=== PATIENT | female | born 2000 | race Caucasian/White ===

== ENCOUNTER 2019-12-04 23:00 | Outpatient (CLI) | payer SELFPAY ==
--- NOTE | 2019-12-04 | US_ITS ---
WS: [id number] OBSTETRICAL ULTRASOUND COMPLETE HISTORY: SUPERVISION OF NORMAL FIRST IN SECOND TRIMESTER COMPARISON: None available. Single intrauterine gestation in Cephalic presentation. Cervix is not visualized. Completely obscured by shadowing. Normal amount of amniotic fluid surrounds the fetus. Placenta: Posterior Placenta grade 0 Heart: 151 BPM. Four chambers are identified. Anatomy: Intracranial structures and spine are normal. kidneys, stomach and urinary bladd er are unremarkable. Abdominal wall, three-vessel cord and cord insertion site are normal. 4 extremities are present. profile: Unremarkable. Gender: Female. measurements: BPD = 4.5 cm = 19w4d HC = 17.1 cm = 19w5d AC = 14.7 cm = 20w0d FL = 3.3 cm = 20w2d EFW: 331 g., Measurements are internally concordant. AGA by ultrasound: 19 weeks 6 days THERESA by ultrasound: 04/23/2020 US/US OB >= 14 weeks fetus [id number] IMPRESSION: 1. Single intrauterine gestation of 19 weeks 6 days with an EDC of 04/23/2020. 2. Unremarkable screening survey of anatomy.
== END 2019-12-04 23:01 | disposition home or self-care (01) ==
LOC: RADOUTREAD 12-07 07:54
PROVIDERS: Visit Provider Family Medicine
DX: Z01.89 Encounter for other specified special examinations (principal)

== ENCOUNTER 2020-02-29 23:05 | Outpatient (CLI) | payer MEDICAID, SELFPAY ==
[2020-02-29 23:05] VITALS: BMI 28.3
[2020-02-29 23:24] VITALS: BP 114/53; PULSE 118; RESP 18; TEMP 36.7
[2020-03-01 00:40] VITALS: BP 127/59; PULSE 101; RESP 17; TEMP 36.6; O2SAT 98
[2020-03-01 00:50] VITALS: BP 127/59; PULSE 101; RESP 17; TEMP 36.6; O2SAT 98
[2020-03-01 09:52] LABS: Bilirubin Urine 1+ (NEGATIVE); Blood Urine Neg (Negative); Glucose Urine UA Norm (Normal); Ketones Urine Negative (Negative); Nitrate Urine Negative (Negative); Protein Urine Neg (Negative); Urine Appearance Cloudy (CLEAR); Urine Color Yellow (Yellow); pH Urine 8 (5-7)
[2020-03-01 09:53] LABS: Add Urine Culture? Yes; Amorphous Sediment Urine 2+; Bacteria Urine 2+; Leukocyte Esterase Urine Negative (Negative); RBC Urine 0-4 /hpf (0-2); Squamous Epithelial Cell Urine 0-4 (0-5); Urobilinogen Urine Norm (Negative); WBC Urine 0-4 /hpf (0-5)
== END 2020-03-01 01:25 | disposition home or self-care (01) ==
LOC: OPOB 03-01 01:19 → OBGYN 03-01 08:11
PROVIDERS: Visit Provider Family Medicine
DX: O26.899 Other specified pregnancy related conditions, unspecified trimester (principal); Z3A.00 Weeks of gestation of pregnancy not specified; R10.9 Unspecified abdominal pain
CPT/HCPCS: 59025; 81001; 87086; 99211

== ENCOUNTER 2020-03-14 14:53 | Outpatient (CLI) | payer MEDICAID, SELFPAY ==
[2020-03-14] VITALS (10 sets, daily range): BP systolic 0–144; BP diastolic 0–72; PULSE 85–104; RESP 17; TEMP 36.8; BMI 29.3
[2020-03-14 15:47] LABS: Urine Appearance Clear (CLEAR); Urine Color Yellow (Yellow)
[2020-03-14 15:48] LABS: Bilirubin Urine Neg (NEGATIVE); Blood Urine Neg (Negative); Glucose Urine UA Norm (Normal); Ketones Urine Negative (Negative); Leukocyte Esterase Urine 1+ (Negative); Nitrate Urine Negative (Negative); Protein Urine Neg (Negative); RBC Urine 0-4 /hpf (0-2); Urobilinogen Urine Neg (Negative); pH Urine 6 (5-7)
[2020-03-14 15:49] LABS: Add Urine Culture? No; Bacteria Urine TRACE; Mucus Urine TRACE
[2020-03-14] MEDS: acetaminophen 500 mg Tablet 1000 MG PO (16:04)
== END 2020-03-14 16:55 | disposition home or self-care (01) ==
LOC: OPOB 15:02 → OBGYN 15:45
PROVIDERS: Visit Provider Family Medicine
DX: O26.899 Other specified pregnancy related conditions, unspecified trimester (principal); Z3A.00 Weeks of gestation of pregnancy not specified; R10.9 Unspecified abdominal pain
CPT/HCPCS: 59025; 81001; 99211

== ENCOUNTER 2020-03-26 17:55 | Outpatient (CLI) | payer MEDICAID, SELFPAY ==
[2020-03-26 18:12] VITALS: BP 140/79; PULSE 92; TEMP 37
[2020-03-26 18:14] VITALS: BMI 29.0
[2020-03-26 18:19] VITALS: PULSE 88; O2SAT 98
[2020-03-26 18:34] VITALS: BP 123/66; PULSE 90
[2020-03-26 18:35] LABS: Actim Prom Negative
[2020-03-26 18:49] VITALS: BP 0/0
[2020-03-26 18:50] VITALS: BP 137/72; PULSE 91
[2020-03-26 19:04] VITALS: BP 148/78; PULSE 94
== END 2020-03-26 19:10 | disposition home or self-care (01) ==
LOC: OPOB 18:08 → OBGYN 18:49
PROVIDERS: Visit Provider Family Medicine
DX: O26.899 Other specified pregnancy related conditions, unspecified trimester (principal); Z3A.00 Weeks of gestation of pregnancy not specified; N89.8 Other specified noninflammatory disorders of vagina
CPT/HCPCS: 59025; 84112; 99211

== ENCOUNTER 2020-04-15 19:28 | Outpatient (CLI) | payer MEDICAID, SELFPAY ==
[2020-04-15 19:41] VITALS: BP 125/75; PULSE 124; RESP 15; TEMP 37
[2020-04-15 19:56] VITALS: BP 134/67; PULSE 92; RESP 16
[2020-04-15 20:15] VITALS: BP 134/62; PULSE 97; RESP 15; TEMP 37
[2020-04-15 20:19] VITALS: BMI 29.7
[2020-04-15 20:26] VITALS: BP 128/68; PULSE 114
[2020-04-15 20:28] LABS: Add Urine Microscopic? YES; Bilirubin Urine 1+ (NEGATIVE); Blood Urine 3+ (Negative); Glucose Urine UA Norm (Normal); Ketones Urine Negative (Negative); Leukocyte Esterase Urine 1+ (Negative); Nitrate Urine Negative (Negative); Protein Urine Neg (Negative); Specific Gravity, Urine 1.025 (1.005-1.030); Urine Appearance Hazy (CLEAR); Urine Color Dark Yellow (Yellow); Urobilinogen Urine 1 mg/dL (Negative); pH Urine 6 (5-7)
[2020-04-15 20:34] LABS: RBC Urine 0-4 /hpf (0-2)
[2020-04-15 20:35] LABS: Add Urine Culture? No; Bacteria Urine TRACE; Mucus Urine 3+
[2020-04-15 20:40] VITALS: RESP 15; TEMP 37
[2020-04-15 20:46] LABS: Basophils % 0.2 %; Eosinophils % 0.2 %; Hematocrit 32.9 % (37.0-47.0); Lymphocytes % 15.2 %; Mean Corpuscular HGB Conc 30.4 g/dL (30.0-36.0); Mean Corpuscular Volume 85.5 fL (81-99); Mean Platelet Volume 11.5 fL (7.4-10.4); Monocytes # 0.8 10^3/uL (0.2-0.9); Monocytes % 6.1 %; Neutrophils # 10.39 10^3/uL (1.8-8.0); Neutrophils % 77.8 %; Nucleated Red Blood Cells % 0 %; Platelet Count 189 10^3/cmm (130-400); Red Blood Count 3.85 10^6/uL (4.1-5.3); Red Cell Distribution Width 14.5 % (12.1-15.1); White Blood Count 13.4 10^3/uL (4.5-13.0)
--- NOTE | 2020-04-15 20:48 | PC.NURSE ---
patient ambulated off unit in stable condition
[2020-04-15 21:01] LABS: Alanine Aminotransferase 7 U/L (0-33); Albumin Level 3.7 g/dL (3.5-5.2); Alkaline Phosphatase 109 IU/L (35-105); Anion Gap 15.8 (5-19); Aspartate Amino Transferase 13 U/L (0-32); Blood Urea Nitrogen 10 mg/dL (6-20); Calcium 9.3 mg/dL (8.5-10.5); Carbon Dioxide 21 mmol/L (22-29); Chloride 101 mmol/L (98-107); Glomerular Filtration Rate 91.4 mL/min (90-130); Glucose 107 mg/dL (65-115); Osmolality Calculated 274 mOsm/kg (285-295); Potassium 3.8 mmol/L (3.5-5.1); Sodium 134 mmol/L (136-145); Total Bilirubin 0.3 mg/dL (0.15-1.2); Total Protein 6.7 g/dL (6.6-8.7); Uric Acid 6.5 mg/dL (2.4-5.7)
--- NOTE | 2020-04-15 22:00 | PC.NURSE ---
paper strips printed in chart.
[2020-04-15 23:40] LABS: Urine Creatinine 336 mg/dL (28-217)
[2020-04-15 23:46] LABS: Urine Protein Random 33 mg/dL
== END 2020-04-15 20:48 | disposition home or self-care (01) ==
LOC: OPOB 20:03 → OBGYN 20:29
PROVIDERS: Visit Provider Family Medicine
DX: O16.9 Unspecified maternal hypertension, unspecified trimester (principal); Z3A.00 Weeks of gestation of pregnancy not specified
CPT/HCPCS: 36415; 59025; 80053; 81001; 81003; 82570; 84156; 84550; 85025; 99211

== ENCOUNTER 2020-04-17 21:00 | Inpatient (IN) | payer MEDICAID, SELFPAY ==
[2020-04-17 20:48] VITALS: BP 147/84; RESP 16; TEMP 37
[2020-04-17 21:18] VITALS: RESP 17; TEMP 37
[2020-04-17 21:21] VITALS: BMI 29.7
[2020-04-17 21:33] LABS: Basophils % 0.2 %; Eosinophils % 0.3 %; Hematocrit 30.7 % (37.0-47.0); Hemoglobin 9.4 g/dL (11.5-15.3); Lymphocytes % 8.4 %; Mean Corpuscular HGB Conc 30.6 g/dL (30.0-36.0); Mean Corpuscular Hemoglobin 26.3 pg (28.0-34.0); Mean Platelet Volume 12.2 fL (7.4-10.4); Monocytes # 0.8 10^3/uL (0.2-0.9); Neutrophils # 9.66 10^3/uL (1.8-8.0); Neutrophils % 83.4 %; Nucleated Red Blood Cells % 0 %; Platelet Count 155 10^3/cmm (130-400); Red Blood Count 3.57 10^6/uL (4.1-5.3); Red Cell Distribution Width 14.6 % (12.1-15.1); White Blood Count 11.6 10^3/uL (4.5-13.0)
[2020-04-17] MEDS: lactated ringers 1,000 ML 999 ML IV ×2 (21:36→23:07)
[2020-04-17] MEDS: ampicillin 2,000 MG in sodium chloride 0.9% (plus) 50 ML 100 MG IV (21:36)
[2020-04-17 22:13] VITALS: RESP 16
[2020-04-17] MEDS: fentaNYL 50 mcg/mL INJ 2mL IV ×2 (22:13→23:00)
[2020-04-17 23:00] VITALS: RESP 25
--- NOTE | 2020-04-17 23:20 | ANES.PREANE2 ---
Pre-Anesthetic Assessment Pre-Anesthetic Assessment: Height/Weight: Height 1.63 m Temp Resp 98.6 F 25 H 04/17/20 21:18 04/17/20 23:00 Preop Diagnosis: labor pain Proposed Procedure: labor epidural Was Beta Afua taken within 24 hours: N/A Social: Social History: No alcohol and No tobacco Exam: Pre-Anes Outpt Exam: alert, oriented x 3, clear to auscultation bilaterally and regular rate & rhythm Airway: Submandibular: WNL Cervical ROM: WNL MP: 2 Dentition: Full History/ROS: No significant history except as noted and No significant complaints Pulmonary: Pulmonary: None reported CV/HEM: CV/HEM: None reported : : None reported Hepatic: Hepatic: None reported GI: GI: None reported Metabolic: Metabolic: None reported Musc/skel: Musc/skel: None reported Neuropsych: Neuropsych: None reported Anesthetic Plan: ASA status: 2 Meds/Allergies Current Medications: Current Medications Generic Name Dose Route Start Last Admin Trade Name Freq PRN Reason Stop Dose Admin Fentanyl 25 - 100 mcg 04/17/20 21:18 04/17/20 23:00 Sublimaze IV 50 mcg Q1H PRN Administration SEVERE PAIN Ampicillin Sodium 2,000 mg/ 50 mls @ 100 mls/ hr 04/17/20 21:30 04/17/20 21:36 Sodium Chloride IV 100 mls/hr ONCE FALGUNI Administration Protocol Lactated Ringer's 1,000 mls @ 999 m ls/hr 04/17/20 21:20 04/17/20 23:07 Lactated Ringers IV 999 mls/hr .Q1H1M PRN Administration ANESTHESIA Data Anesthesia CBC & Chem 7: 04/17/20 21:10 Other Labs: Laboratory Results - last 48 hr 04/17/20 21:10 WBC 11.6 RBC 3.57 L Hgb 9.4 L Hct 30.7 L MCV 86.0 MCH 26.3 L MCHC 30.6 RDW 14.6 Plt Count 155 MPV 12.2 H Neut % (Auto) 83.4 Lymph % (Auto) 8.4 Kings % (Auto) 7.0 Eos % (Auto) 0.3 Baso % (Auto) 0.2 Neut # (Auto) 9.66 H Lymph # (Auto) 1.0 L Kings # (Auto) 0.8 Eos # (Auto) 0.0 Baso # (Auto) 0.0 Nucleated RBC % (auto) 0 Nucleated RBCs # 0.0 Cardiac Studies: No Data to Display
[2020-04-17 23:50] VITALS: BP 140/61; PULSE 93
[2020-04-17 23:56] VITALS: PULSE 116; O2SAT 100
[2020-04-18] VITALS (50 sets, daily range): BP systolic 114–169; BP diastolic 57–99; PULSE 36–124; RESP 15–20; TEMP 36.4–37.1; O2SAT 91–100
--- NOTE | 2020-04-18 00:26 | ANES.PROC ---
Anesthesia Procedures Procedure/Date: 04/18/20 Epidural: Time Out Performed: Yes Consents Signed: Procedure Consent Consent: requested by attending/covering physician, from patient, risks and benefits reviewed and patient agrees to proceed Lumbar Level: L3-L4 Epidural position: sitting Epidural procedure: sterile prep of area, 1% lidocaine to numb the area (3), 18 g needle, negative for paresthesia passed, neg for paresthesia, test dose given, 1.5% xylocaine 1:200k epi (5), 0.2% Ropivacaine bolus ml (5), placed PCEA (5cc q 10min x 3), no systemic response, sterile dressing applied, L.U.D. no apparent complications and 0.2% Ropiavacaine @ mls/hr (12) Additional Comments: Called to OB for epidural consult, pt evaluated and assessed. Labs reviewed, epidural placed to 5cm. test dose negative, bolused with epidural pump and monitored. VSS throughout . Pain much improved.
[2020-04-18] MEDS: ampicillin 1,000 MG in sodium chloride 0.9% (plus) 50 ML 100 MG IV ×2 (01:08→05:57)
[2020-04-18] MEDS: ondansetron 2 mg/ML SDV 2 mL 4 MG IVP (06:51)
--- NOTE | 2020-04-18 07:36 | PM.DELIVERY ---
Delivery Note: Date of delivery: April 18, 2020 Pre-Delivery Course: The patient is a 19-year-old 3 para 2-0-0-2 at 39 weeks estimated gestational age who presented to the hospital last night in active labor. Her labs were remarkable for being O+. And for being GBS positive. Otherwise her labs were within normal limits. The patient arrived to the hospital in active labor. She was placed on the GBS protocol. An epidural was placed. An amniotomy was performed about an hour prior to delivery. The patient progressed to complete without difficulty. Her blood pressures were consistently below a systolic of 160 and a diastolic of 100 without treatment. Delivery: DELIVERY: The patient progressed to complete without difficulty. She delivered a female with a weight of 7 pounds 4 ounces with Apgars of 8, 9. The baby was delivered from the HERBERT position. The baby's mouth and nose were suctioned at the site of the perineum. The baby was then completely delivered and placed on the mother's abdomen. The cord was then clamped and cut. There was no nuchal cord. There was no meconium. The placenta and 3 vessel cord were delivered intact shortly thereafter. The perineum and vaginal vault were carefully examined. An anterior midline laceration was noted which was not bleeding and therefore not repaired. Both the mother and the baby were in stable condition. A&P Assessment and plan (1) 39 weeks gestation of : The mother has breast-fed her previous children. Anticipate she will have an unremarkable course. Anticipate she will go home tomorrow if there are no complications. Status: Acute (2) Gestational hypertension: Status: Acute (3) Spontaneous vaginal delivery: Status: Acute Coding Level of Care Code Acute Outside Installation Machinist for Chg Fwd Diagnoses 39 weeks gestation of Z3A.39 Gestational hypertension O13.9 Spontaneous vaginal delivery O80
[2020-04-18] MEDS: prenatal vitamin Capsule 1 CAP PO (10:10)
[2020-04-18] MEDS: HYDROcodone-acetaminophen 5-325 mg Tablet PO ×2 (10:11→20:05)
[2020-04-18] MEDS: docusate sodium 100 mg Capsule PO ×2 (10:11→18:28)
[2020-04-18] MEDS: benzocaine-menthol 78 gm Canister 1 SPRAY TOPICAL (10:40)
[2020-04-18] MEDS: lanolin oint 7 gm 1 APPLIC TOPICAL (10:41)
[2020-04-18 20:29] LABS: Hematocrit 30.9 % (37.0-47.0); Hemoglobin 9.4 g/dL (11.5-15.3); Mean Corpuscular HGB Conc 30.4 g/dL (30.0-36.0); Mean Corpuscular Hemoglobin 26.6 pg (28.0-34.0); Mean Corpuscular Volume 87.3 fL (81-99); Mean Platelet Volume 12.1 fL (7.4-10.4); Platelet Count 132 10^3/cmm (130-400); Red Blood Count 3.54 10^6/uL (4.1-5.3); Red Cell Distribution Width 14.8 % (12.1-15.1); White Blood Count 13.8 10^3/uL (4.5-13.0)
[2020-04-19 05:30] VITALS: BP 131/70; PULSE 82; RESP 16
[2020-04-19] MEDS: HYDROcodone-acetaminophen 5-325 mg Tablet PO (07:11)
--- NOTE | 2020-04-19 08:10 | P.DS_ITS ---
Discharge Providers ORACLE SOFTWARE ENGINEER Date of Admission: 04/17/20 21:00 Date of Discharge: 04/19/20 Attending Provider at Admission: Pravin Diaz MD Attending Provider at Discharge: Pravin Diaz MD Diagnoses at Discharge Discharge Diagnosis (1) 39 weeks gestation of : Status: Acute (2) Gestational hypertension: Status: Acute (3) Spontaneous vaginal delivery: Status: Acute Reason for Visit Reason for Visit: contractions Hospital Course Hospital Course: The patient presented to the hospital in active labor. She was GBS positive and received GBS protocol. She progressed to 9 cm at which time I performed an amniotomy. She then progressed to complete within the hour. She then had an unremarkable delivery of a healthy appearing 39-week female infant. She then had an unremarkable course. Her bleeding was within normal limits. She breast-fed well. Her pain is well controlled. There were no concerns. Information Peripartum Data: Delivery Method: Vaginal Physical Exam Narrative: EXAM NARRATIVE: The patient is alert. She appears comfortable. Her heart has a regular rate and rhythm with no murmurs appreciated. Lungs are clear to auscultation bilaterally. Her fundus is firm and below the umbilicus. Discharge Data Data Completed and Pending: Labs from last 24 hours 04/18/20 20:15 WBC 13.8 H RBC 3.54 L Hgb 9.4 L Hct 30.9 L MCV 87.3 MCH 26.6 L MCHC 30.4 RDW 14.8 Plt Count 132 MPV 12.1 H Vitals: Last Vital Signs Temp 97.5 F L 04/18/20 17:35 Pulse 82 04/19/20 05:30 Resp 16 04/19/20 05:30 BP 131/70 04/19/20 05:30 Pulse Ox 98 04/18/20 22:00 Discharge Plan Discharge Patient Disposition: Home, Self-Care Condition: Stable Prescriptions: New ibuprofen 800 mg Tablet 800 mg PO TID Qty: 30 RF: 0 Continued PNV [id number] fumarate-FA [] 28 mg iron- 800 mcg Tablet 1 tab PO DAILY RF: 0 Discharge Orders: Discharge Order (Routine); Ordered 04/19/20 Ordered By: Pravin Diaz Referrals: Pravin Diaz MD [Physician] - 6 Weeks Discharge Diet: Usual diet Discharge Activity: Limit activity as instructed Discharge Attestations ORACLE SOFTWARE ENGINEER Time Spent in Discharge Care*: less than 30 min Coding Level of Care Code Acute Seamless Hosiery Knitter for Chg Fwd Diagnoses 39 weeks gestation of Z3A.39 Gestational hypertension O13.9 Spontaneous vaginal delivery O80
[2020-04-19] MEDS: docusate sodium 100 mg Capsule PO (09:11)
[2020-04-19] MEDS: prenatal vitamin Capsule 1 CAP PO (09:11)
[2020-04-19 10:55] VITALS: BP 163/84; PULSE 81; RESP 16; TEMP 36.7; O2SAT 98
== END 2020-04-19 10:58 | disposition home or self-care (01) | DRG 807 ==
LOC: OPOB 21:04 → OBGYN 21:04 → OPOB 21:05 → OBGYN 21:05
PROVIDERS: Admitting Provider Family Medicine; Visit Provider Family Medicine
DX: O13.4 Gestational [pregnancy-induced] hypertension without significant proteinuria, complicating childbirth (principal); Z37.0 Single live birth; Z3A.39 39 weeks gestation of pregnancy; O99.824 Streptococcus B carrier state complicating childbirth; O71.89 Other specified obstetric trauma
CPT/HCPCS: 12345; 36415; 51702; 59025; 59409; 85025; 85027; 96374; 96375; 99211; J0290; J2405; J2795; J3010

== ENCOUNTER → 2021-05-17 18:39 | Outpatient (BNVA) | payer MEDICAID, SELFPAY | PROVIDERS: Visit Provider Registered Nurse Neonatal Intensive Care | DX: S89.92XA Unspecified injury of left lower leg, initial encounter (principal); W19.XXXA Unspecified fall, initial encounter | CPT/HCPCS: 73562 ==

== ENCOUNTER → 2021-12-08 13:43 | Outpatient (BNVA) | payer OTHER, MEDICAID, SELFPAY | PROVIDERS: Visit Provider Counselor Professional | DX: F33.9 Major depressive disorder, recurrent, unspecified (principal) | CPT/HCPCS: 90837 ==

== ENCOUNTER → 2021-12-29 13:48 | Outpatient (BNVA) | payer OTHER, MEDICAID, SELFPAY | PROVIDERS: Visit Provider Counselor Professional | DX: F33.9 Major depressive disorder, recurrent, unspecified (principal) | CPT/HCPCS: 90834 ==

== ENCOUNTER → 2022-01-12 13:53 | Outpatient (BNVA) | payer OTHER, MEDICAID, SELFPAY | PROVIDERS: Visit Provider Counselor Professional | DX: F33.9 Major depressive disorder, recurrent, unspecified (principal) | CPT/HCPCS: 90834 ==

== ENCOUNTER 2022-03-31 17:44 | Emergency (ER) | payer MEDICAID, SELFPAY ==
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
[2022-03-31 17:59] VITALS: BP 125/82; PULSE 99; RESP 18; O2SAT 92; BMI 24.0
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
[2022-03-31] MEDS: ondansetron 2 mg/ML SDV 2 mL 4 MG IVP (18:51)
[2022-03-31] MEDS: sodium chloride 0.9% 1,000 ML 999 ML IV ×2 (18:51→19:48)
[2022-03-31 18:53] VITALS: RESP 15
[2022-03-31] MEDS: HYDROmorphone 1 mg/mL INJ 1 mL IVP ×2 (18:53→20:06)
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
[2022-03-31 19:37] LABS: Basophils % 0.2 %; Eosinophils % 0.1 %; Hematocrit 47.6 % (37.0-47.0); Hemoglobin 16.6 g/dL (11.5-15.3); Lymphocytes # 1.4 10^3/uL (0.8-4.8); Lymphocytes % 8.1 %; Mean Corpuscular HGB Conc 34.9 g/dL (30.0-36.0); Mean Corpuscular Hemoglobin 31.1 pg (28.0-34.0); Mean Corpuscular Volume 89.1 fl (81-99); Mean Platelet Volume 10.6 fL (7.4-10.4); Monocytes # 0.9 10^3/uL (0.2-0.9); Monocytes % 5.2 %; Neutrophils % 86.1 %; Nucleated Red Blood Cells % 0 %; Platelet Count 337 10^3/cmm (130-400); Red Blood Count 5.34 10^6/uL (4.1-5.3); Red Cell Distribution Width 11.4 % (12.1-15.1); White Blood Count 17.9 10^3/uL (4.0-10.0)
[2022-03-31] MEDS: neomycin-poly-bacitracin oint 28 gm 1 APPLIC TOPICAL (19:49)
[2022-03-31 19:51] VITALS: BP 133/74; PULSE 106; RESP 18; O2SAT 95
[2022-03-31 19:51] LABS: HCG, Serum Qual Negative (Negative); INR 1.01 (0.8-1.2)
[2022-03-31 19:58] LABS: Alanine Aminotransferase 20 U/L (0-33); Albumin Level 5.3 g/dL (3.5-5.2); Alcohol Level 260 mg/dL (0-10); Alkaline Phosphatase 97 IU/L (35-105); Anion Gap 17.5 (5-19); Aspartate Amino Transferase 26 U/L (0-32); Blood Urea Nitrogen 10 mg/dL (6-20); Calcium 9.5 mg/dL (8.5-10.5); Carbon Dioxide 22 mmol/L (22-29); Chloride 108 mmol/L (98-107); Creatinine Clr Calc Pharmacy 90.1171; Globulin 2.8 g/dL (1.3-4.6); Glomerular Filtration Rate 78.3 mL/min (90-130); Glucose 119 mg/dL (65-115); Osmolality Calculated 298 mOsm/kg (285-295); Potassium 3.5 mmol/L (3.5-5.1); Sodium 144 mmol/L (136-145); Total Bilirubin 0.5 mg/dL (0.15-1.2); Total Protein 8.1 g/dL (6.6-8.7)
[2022-03-31 20:10] VITALS: BP 133/74; RESP 18; O2SAT 97
[2022-03-31 20:19] LABS: Urine Color Yellow (Yellow)
[2022-03-31 20:20] LABS: Add Urine Microscopic? YES; Bilirubin Urine Neg (Negative); Blood Urine Neg (Negative); Glucose Urine UA Norm (Normal); Ketones Urine Negative (Negative); Leukocyte Esterase Urine Negative (Negative); Nitrate Urine Negative (Negative); Protein Urine Trace (Negative); RBC Urine 0-4 /hpf (0-2); Specific Gravity, Urine 1.015 (1.005-1.030); Urine Appearance Clear (CLEAR); Urobilinogen Urine Norm (Negative); WBC Urine 0-4 /hpf (0-5); pH Urine 5 (5-7)
[2022-03-31 20:21] LABS: Add Urine Culture? No; Amorphous Sediment Urine TRACE /hpf; Bacteria Urine TRACE /hpf; Mucus Urine 3+ /hpf; Squamous Epithelial Cell Urine 0-4 /hpf (0-5); Transitional Epi Cells Urine 0-4 /hpf
[2022-03-31 21:12] VITALS: BP 139/84; PULSE 87; RESP 18; O2SAT 93
== END 2022-03-31 21:14 | disposition home or self-care (01) ==
PROVIDERS: Emergency Provider Emergency Medicine
DX: S01.81XA Laceration without foreign body of other part of head, initial encounter (principal); S70.02XA Contusion of left hip, initial encounter; S20.219A Contusion of unspecified front wall of thorax, initial encounter; S00.81XA Abrasion of other part of head, initial encounter; V48.6XXA Car passenger injured in noncollision transport accident in traffic accident, initial encounter
CPT/HCPCS: 70450; 70486; 71250; 72125; 73700; 74176; 80053; 80307; 81001; 84703; 85025; 85610; 96361; 96374; 96375; 96376; 99284; J1170; J2405; J7030

== ENCOUNTER 2022-04-03 20:34 | Emergency (ER) | payer MEDICAID, SELFPAY ==
[2022-04-03 21:05] VITALS: BP 128/88; PULSE 93; RESP 18; TEMP 36.6; O2SAT 97; BMI 25.7
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
[2022-04-03] MEDS: morphine 4 mg/mL SDV 1 mL IM (22:28)
[2022-04-03] MEDS: ondansetron 2 mg/ML SDV 2 mL 4 MG IM (22:28)
== END 2022-04-03 23:00 | disposition home or self-care (01) ==
PROVIDERS: Emergency Provider Emergency Medicine; PCP Family Medicine
DX: S09.8XXA Other specified injuries of head, initial encounter (principal); R11.11 Vomiting without nausea; V89.2XXA Person injured in unspecified motor-vehicle accident, traffic, initial encounter
CPT/HCPCS: 70450; 96372; 99284; J2270; J2405

== ENCOUNTER 2023-02-22 17:11 | Inpatient (IN) | payer MEDICAID, SELFPAY ==
[2023-02-22 17:16] VITALS: BMI 22.3
--- NOTE | 2023-02-22 17:16 | ED.C_ITS ---
HPI - Psych General: Chief Complaint: Psychiatric Symptoms Stated Complaint: psyche eval Time Seen by Provider: 02/22/23 17:12 Limitations: other History of Present Illness: Ms. Abraham is a 22-year-old lady presenting to the emergency department for court ordered 96-hour hold. The patient herself reports not knowing why she is here other than that she was told that she is on a hold. She denies making suicidal statements or homicidal statements. She does endorse alcohol use including today however denies daily drinking. She does appear somewhat cl inically intoxicated which limits evaluation. She is tearful which also limits history. She denies self injury or history of suicide attempts. She denies history of psychiatric evaluation/hospitalization. Per 96-hour hold paperwork multiple family members endorse that she has made statements about wanting to and kill herself. They also believe that she has an alcohol use disorder. Review of Systems General: Reports: 10 or more systems reviewed and unremarkable except in HPI and below PFSH ED PFSH: Social History Smoking and tobacco status: never smoked Alcohol intake: current Alcohol intake frequency: few times a week Substance/Drug Use: never Physical Exam Const: COMMON NORMALS: alert GENERAL APPEARANCE: cooperative and well developed HENMT: COMMON NORMALS: normocephalic and atraumatic HEAD & SCALP: normocephalic and atraumatic Eye: COMMON NORMALS: conjunctivae normal CONJUNCTIVA: Yes conjunctivae normal SCLERA: sclerae normal Neck/C-Spine: COMMON NORMALS: supple GENERAL: Yes trachea midline Resp: COMMON NORMALS: clear to auscultation bilaterally EFFORT & INSPE CTION: Yes able to speak in complete sentences AUSCULTATION: clear to auscultation bilaterally Cardio: COMMON NORMALS: regular rate and regular rhythm RATE: regular rate RHYTHM: regular rhythm GI: COMMON NORMALS: Soft to palpation PALPATION: Yes Soft to palpation and No Tenderness to palpation present (GI) Extremity: GENERAL: Yes normal exam except as noted and No edema Neuro: COMMON NORMALS: moves all extremities SENSORIUM/ORIENTATION: Yes alert and No Orientation impaired Psych: COMMON NORMALS: denies homicidal ideation and denies suicidal ideation INSIGHT: Poor insight present (Psych) JUDGEMENT: Fair judgement present (Psych) OTHER: Appears clinically intoxicated Course Vital Signs: Vital signs: Vital Signs Temperature 98.5 F 02/26/23 17:14 Pulse Rate 87 02/26/23 17:14 Respiratory Rate 18 02/26/23 17:14 Blood Pressure 127/80 02/26/23 17:14 Pulse Oximetry 99 02/26/23 17:14 Oxygen Delivery Me thod Room Air 02/26/23 06:38 MDM - Psych Medical Decision Making 22-year-old presenting to the ER for psychiatric evaluation on outside 96-hour hold. Patient appears clinically intoxicated which limits history. She is nontoxic. Labs with no significant hematologic or metabolic abnormalities to explain symptoms, hCG is negative. Toxic ingestions and UDS are positive for elevated ethyl alcohol and THC. Given clinical history, exam, laboratory studies there is no indication for imaging at this time. Patient requires inpatient management of psychiatric symptoms and substance abuse. Based on the ED evaluation at this point there is no obvious condition that would preclude inpatient management. Discussed with psychiatry service who was agreeable to admit patient. Medical Records I reviewed the patient's medical records. Lab Data I reviewed the patient's lab results. 02/22/23 17:55 02/22/23 17:55 Laboratory Results WBC 6.0 10^3/uL (4.0-10.0) 02/22/23 17:55 RBC 4.88 10^6/uL (4.1-5.3) 02/22/23 17:55 Hgb 14.8 g/dL (11.5-15.3) 02/22/23 17:55 Hct 44.0 % (37.0-47.0) 02/22/23 17:55 MCV 90.2 fl (81-99) 02/22/23 17:55 MCH 30.3 pg (28.0-34.0) 02/22/23 17:55 MCHC 33.6 g/dL (30.0-36.0) 02/22/23 17:55 RDW 12.4 % (12.1-15.1) 02/22/23 17:55 Plt Count 299 10^3/cmm (130-400) 02/22/23 17:55 MPV 10.6 fL (7.4-10.4) H 02/22/23 17:55 Neut % (Auto) 67.6 % 02/22/23 17:55 Lymph % (Auto) 26.5 % 02/22/23 17:55 [place] % (Auto) 5.0 % 02/22/23 17:55 Eos % (Auto) 0.2 % 02/22/23 17:55 Baso % (Auto) 0.5 % 02/22/23 17:55 Neut # (Auto) 4.09 10^3/uL (1.8-7.7) 02/22/23 17:55 Lymph # (Auto) 1.6 10^3/uL (0.8-4.8) 02/22/23 17:55 [place] # (Auto) 0.3 10^3/uL (0.2-0.9) 02/22/23 17:55 Eos # (Auto) 0.0 10^3/uL (0.0-0.8) 02/22/23 17:55 Baso # (Auto) 0.0 10^3/uL (0.0-0.1) 02/22/23 17:55 Nucleated RBC % (auto) 0 % 02/22/23 17:55 Nucleated RBCs # 0.0 /100WBC 02/22/23 17:55 Sodium 142 mmol/L (136-145) 02/22/23 17:55 Potassium 3.8 mmol/L (3.5-5.1) 02/22/23 17:55 Chloride 107 mmol/L (98-107) 02/22/23 17:55 Carbon Dioxide 21 mmol/L (22-29) L 02/22/23 17:55 Anion Gap 17.8 (5-19) 02/22/23 17:55 BUN 5 mg/dL (6-20) L 02/22/23 17:55 Creatinine 0.7 mg/dL (0.5-0.9) 02/22/23 17:55 GFR Calculation 103.7 mL/min (90-130) 02/22/23 17:55 Glucose 102 mg/dL (65-115) 02/22/23 17:55 Calculated Osmolality 291 mOsm/kg (285-295) 02/22/23 17:55 Calcium 8.7 mg/dL (8.5-10.5) 02/22/23 17:55 Total Bilirubin 0.3 mg/dL (0.15-1.2) 02/22/23 17:55 AST 16 U/L (0-32) 02/22/23 17:55 ALT 15 U/L (0-33) 02/22/23 17:55 Alkaline Phosphatase 78 U/L (35-105) 02/22/23 17:55 Total Protein 7.5 g/dL (6.6-8.7) 02/22/23 17:55 Albumin 4.8 g/dL (3.5-5.2) 02/22/23 17:55 Globulin 2.7 g/dL (1.3-4.6) 02/22/23 17:55 TSH 1.23 uIU/mL (0.27-4.20) 02/22/23 17:55 HCG, Qual Negative (Negative) 02/22/23 17:55 Salicylates < 0.3 mg/dL (3-10) L 02/22/23 17:55 Urine Opiates Screen Negative ng/mL (Negative) 02/22/23 19:04 Acetaminophen < 5.0 ug/mL (10-30) L 02/22/23 17:55 Ur Barbiturates Screen Negative ng/mL (Negative) 02/22/23 19:04 Ur Phencyclidine Scrn Negative ng/mL (Negative) 02/22/23 19:04 Ur Amphetamines Screen Negative ng/mL (Negative) 02/22/23 19:04 U Benzodiazepines Scrn Negative ng/mL (Negative) 02/22/23 19:04 Urine Cocaine Screen Negative ng/mL (Negative) 02/22/23 19:04 U Marijuana (THC) Screen Positive ng/mL (Negative) H 02/22/23 19:04 Ethyl Alcohol 228 mg/dL (0-10) H 02/22/23 17:55 Discharge Plan Discharge Patient Disposition: Admitted As Inpatient Admit Provider: Amari Aponte Clinical Impression: Verbalizes suicidal thoughts, Substance abuse Condition: Stable Discharge Diet: Regular Discharge Activity: Resume usual activity Coding Level of Care Code ED Residential Program Manager for Luz Woodall
[2023-02-22 17:21] VITALS: BP 139/81; PULSE 110; RESP 18; O2SAT 100
--- NOTE | 2023-02-22 17:30 | PC.NURSE ---
Spoke with patient about collected urine for u/a being watered down and cool to touch immediately when collected by RN. Pt educated that results would not be shared, and results needed for continuity of care. Patient agreed to give another sample, and asked for drink off water.
--- NOTE | 2023-02-22 17:39 | PC.NURSE ---
Pt changed out into paper scrubs, 1:1 sitter outside of room.
[2023-02-22 18:29] LABS: Basophils % 0.5 %; Eosinophils % 0.2 %; Hemoglobin 14.8 g/dL (11.5-15.3); Lymphocytes # 1.6 10^3/uL (0.8-4.8); Lymphocytes % 26.5 %; Mean Corpuscular HGB Conc 33.6 g/dL (30.0-36.0); Mean Corpuscular Hemoglobin 30.3 pg (28.0-34.0); Mean Corpuscular Volume 90.2 fl (81-99); Mean Platelet Volume 10.6 fL (7.4-10.4); Monocytes # 0.3 10^3/uL (0.2-0.9); Neutrophils # 4.09 10^3/uL (1.8-7.7); Neutrophils % 67.6 %; Nucleated Red Blood Cells % 0 %; Platelet Count 299 10^3/cmm (130-400); Red Blood Count 4.88 10^6/uL (4.1-5.3); Red Cell Distribution Width 12.4 % (12.1-15.1)
[2023-02-22 18:46] LABS: Alanine Aminotransferase 15 U/L (0-33); Albumin Level 4.8 g/dL (3.5-5.2); Alcohol Level 228 mg/dL (0-10); Alkaline Phosphatase 78 U/L (35-105); Anion Gap 17.8 (5-19); Aspartate Amino Transferase 16 U/L (0-32); Blood Urea Nitrogen 5 mg/dL (6-20); Calcium 8.7 mg/dL (8.5-10.5); Carbon Dioxide 21 mmol/L (22-29); Chloride 107 mmol/L (98-107); Globulin 2.7 g/dL (1.3-4.6); Glomerular Filtration Rate 103.7 mL/min (90-130); Glucose 102 mg/dL (65-115); Osmolality Calculated 291 mOsm/kg (285-295); Potassium 3.8 mmol/L (3.5-5.1); Sodium 142 mmol/L (136-145); Total Bilirubin 0.3 mg/dL (0.15-1.2); Total Protein 7.5 g/dL (6.6-8.7)
--- NOTE | 2023-02-22 18:55 | PC.NURSE ---
Patient 96 hr rights reviewed in accompany of [facility] security architect Dane @[phone]. All questions answered. Patient copy left at bedside.
[2023-02-22 19:09] LABS: HCG, Serum Qual Negative (Negative)
[2023-02-22 19:23] LABS: Amphetamines Screen Urine Negative (Negative); Barbiturates Screen Urine Negative (Negative); Benzodiazepines Screen Urine Negative (Negative); Cocaine Screen Urine Negative (Negative); Opiate Screen Urine Negative (Negative); PCP Screen Urine Negative (Negative); THC Screen Urine Positive (Negative)
[2023-02-22 19:28] LABS: Acetaminophen < 5.0 ug/mL (10-30); Salicylate < 0.3 mg/dL (3-10)
[2023-02-22 19:36] LABS: Thyroid Stimulating Hormone 1.23 uIU/mL (0.27-4.20)
[2023-02-22 21:06] VITALS: BP 149/90; PULSE 92; RESP 18; O2SAT 97
[2023-02-22 22:05] VITALS: PULSE 90; RESP 18; O2SAT 98
[2023-02-22 23:24] VITALS: BP 114/49; PULSE 89; RESP 18; TEMP 36.7; O2SAT 97
[2023-02-23] MEDS: loperamide 2 mg Capsule PO (00:44)
[2023-02-23] MEDS: ondansetron 4 MG Tablet PO (00:44)
[2023-02-23 06:00] VITALS: RESP 17
[2023-02-23] MEDS: nicotine 2 mg Gum BUCCAL ×5 (07:56→21:55)
--- NOTE | 2023-02-23 09:42 | P.NPUHP_ITS ---
Providers/Chief Complaint Admitting Physician: Amari Aponte MD Primary Care Provider: Pravin Diaz MD Chief Complaint: psyche eval HPI NPU History of Present Illness Terra Abraham is a 22 year old female who presented to the emergency depart ment with the following report: Chief Complaint: Psychiatric Symptoms Stated Complaint: psyche eval Time Seen by Provider: 02/22/23 17:12 Limitations: other History of Present Illness: Ms. Abraham is a 22-year-old lady presenting to the emergency department for court ordered 96-hour hold. The patient herself reports not knowing why she is here other than that she was told that she is on a hold. She denies making suicidal statements or homicidal statements. She does endorse alcohol use inc luding today however denies daily drinking. She does appear somewhat clinically intoxicated which limits evaluation. She is tearful which also limits history. She denies self injury or history of suicide attempts. She denies history of psychiatric evaluation/hospitalization. Per 96-hour hold paperwork multiple family members endorse that she has made statements about wanting to and kill herself. They also believe that she has an alcohol use disorder. She was admitted to the neuropsychiatric unit for definitive treatment of those issues. She is not currently on psychiatric medications. She presents today reporting that she was arguing with her after drinking on Saturday and was taken to the hospital by the police. She has never been psychiatrically hospitalized, has never received outpatient services and has not been on psychiatric medication in the past. She reports half a pack of cigarettes a day, alcohol on some weekends, denies marijuana, and denies any other illicit drug use. She has never had drug and alcohol treatment, DUIs or drug and alcohol related charges. She reports that some people have suggested she has anger issues in the past. These issues began presenting when she was a child but she reports that they have not caused any problems until now. She denies depression, denies suicidal ideation, and denies self-injurious behaviors. She denies traumatic events, nightmares, or flashbacks. She denies anxiety or feeling overwhelmed in social situations. She denies visual or auditory hallucinations and denies paranoia. She reports that she was having a disagreement with her about the kids while they were both drinking. She reports that some family members got involved before the dispatcher bus and trolley came, after which they left and then returned with the 96-hour paperwork. Review of the 96-hour paperwork was worrisome for her underreporting the significance of her drinking and the domestic issues with her significant other. There are reports of multiple calls to the police and significant fighting in front of the children. It is possible that the middle child has actually already been placed temporarily due to these concerns. Psychiatric History: As above. Substance Abuse History: As above. Family History: There were no reports of mental health issues on the mother?s side of the family. There were no formal reports of mental health on the father?s side of the family, however she reports that he may have anger issues. There were no reports of addiction issues on either side of the family, and denies any suicide attempts or completions on either side of the family. Developmental History: She denies any issues with her or , learned to walk and talk and met her developmental milestones on time and had speech therapy and special education classes. Psychosocial History: Her parents were together when she was born and remained together. She has 2 older brothers and 1 younger fraternal twin sister from the same union. Her mother has 1 other older daughter. Her father has 3 other children, 2 older and 1 younger. She describes her childhood in that she loved sports, she did not get into much trouble, and that her grades were great. There was CYS involvement a couple times when her parents split up and her father was trying to take her from her mother, but there was no placement outside of the home. She reports that her twin sister falsely accused her past ex of having a baby with her 2 years into their relationship. She describes it as the hardest thing she?s ever had to deal with. The highest grade she achieved was 9th grade and has received a medication passing certificate while working. She endorses being heterosexual with her longest relationship being 7 years and her current relationship being 5 years. She has never been . She has a 6 year old son, an older 6 year old daughter, and a 2 year old daughter. The oldest 2 are from a different union than the youngest. has not been in the and denies any zoroastrian systems. Her longest employment history is 4-5 months in [employer]. She lives in an apartment duplex with her fiance and 3 kids. Legal History: Denied. Medical History: She has been hypoglycemic a few times while . She began menstruating around 9-12 years old and endorses she had heavy cycles which required control to regulate her. She has been 3 times and delivered her children vaginally. Per her 08/11/2021 [facility] outpatient mental health assessment: [facility] Assessment Date of Service: 08/11/21 Time In: 14:56 Time Out: 15:30 Setting: Office Visit Is patient part of the 3700?: No Diagnosis (1) Major depressive disorder, single episode, mild: This diagnosis is based on information provided by patient during initial examination(s). Diagnosis may change as additional information becomes available through course of treatment. Above diagnosis Should Not be used for any purposes other than as a working diagnosis for medical care of the patient, including determination of whether the patient?s condition is sufficiently acute to impair the patient?s ability to work or perform other routine tasks. History of Present Illness Presenting Problem/Chief Complaint: Client reported coming to services, because her fiance would break up with her if she did not seek services. She said they get into fights, things get broken, and that she has anger issues. She stated having an interest in individual therapy, but also couples therapy. Client was fairly erratic acting during the assessment, she would wiggle and squirm around in her chair and barely had her eyes open. She would also speak very loudly. She was asked if she was using any substances and she denied any substance abuse. She stated her mom thinks she has PTSD, but when asked what the traumatic event was she said she had no idea. She stated the traumatic event might have been her previous partner cheating on her. She said he cheated on her for their first two years of being in a relationship with her twin sister. She said her twin became and that she broke up with him, but that it turned out the baby was not his. She said they then got back together and were together a total of 7 years. She said she wakes up crying dreams and having nightmares of her current partner cheating on her. However, she stated she knows he is cheating on her, because she has seen the text messages of him texting other women. However, she said she has never caught him actually physically cheating, but that if she were to text other men it would be considered cheating. She stated she told him that, which is why she thinks they should have couples counseling. She said it is unknown if he ever acted on the text messages or not. She stated he gets to go to work and he gets to leave and varela, or go hangout with friends. She said her mood can be influenced on how she is treated in the morning. She said she has had some really rough mornings. She said it depends on if her feelings are taken into consideration. For depression: depressed mood/break down crying; diminished interest in activities, such as, no longer cleaning house or taking kids to park; she said she isolates in the bathtub and listens to music; difficulty sleeping or cannot sleep, lay there awake until eventually fall asleep or just lay there with eyes close and fall asleep for two minutes and then wake up and repeat that cycle; loss of energy or fatigue; feelings of worthlessness. She denies recurrent thoughts of . She stated her partner can say pretty hurtful things about her not having a job or helping pay the bills. Current Psychiatric and Physical Symptoms:: Feelings are hurt talking about it. No physical symptoms Childhood and Family History She said she was born in [place] and that her mom took her five kids to come here for her grandpa. She said he had cancer and that was back in 1999. She stated she has four siblings, one is a twin that she doesn't like this is the one that cheated with jaxon. She stated he is not with the twin, because the child turned out not to be his. She stated he was cheating for two years with her while they were together for those first two years. She said they broke up and then got back together when the baby turned out to not be his. She states having two kids with the ex that cheated with her twin, a three year old and a five year old. She stated having both a boy and a girl. When asked how his r elationship was with their children she said they call him by his real name not dad, and he has not been there in quite sometime. She said he reached out on Halloween and she took the kids to see him, but an event unfolded where he lied to her and her new partner caught him lying and she made a scene in the street. She said she has a 1 year old with her fiance. She said she doesn't really talk to her dad and they haven't talked in months. She said the last thing she knew he was living in somewhere. She said they after she had her first kid in 2016. She said her dad was rough and that he was raised rough by his mom, so he is just a very rough person. She said he might call us like stupid or something like that, but denies physical, verbal, or sexual abuse. When asked about her mom having a difficult she stated that her twin was in an incubator, but that she was able to leave the hospital on time. Accommodations: None Family Psychiatric History: Bipolar (She said her dad did have to attend anger management classes, but not diagnosed. 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 ) Client's employment History [email or web address], [employer], [employer]. 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 Does client have valid passenger coach driver's license?: No History: Client denies service Abilities/Interests Nails done sometimes, hair dyed. Individual's Strengths: Food, Stable Housing, Active Insurance and Transportation Support Individual's Obstacles: Low Self-Esteem Legal Status/History: Current legal issues denied Demographics Marital Status: life partner (Heath) Ethnicity: Spiritual Pursuits: None Do you think of yourself as: Straight/Heterosexual Gender Identity: Female Language(s) Spoken: Bulgarian Custody/Guardianship Education Highest Education Level Reached: high school (10th Grade) Academic Performance: Performance below grade level Extracurricular Activities: Sports (All but cheerleading) Special Accommodations: None Disciplinary Actions: Rare (9th Grade caught for marijuana.) Health Is Patient in Pain?: No Primary Care Provider: Yes (Dr. Diaz ) Have you been seen by your primary care provider or GEOMETRICIAN in the past 12 months?: Yes (October 2020) Last Physical Exam: More than 1 year ago Other Healthcare Providers Family Medical History: Cancer (Grandpa leukimia a few times. ) and High Blood Pressure (Grandpa high or low.) Meds NPU Home Medications Medication Instructions Recorded Confirmed Last Taken Type No Known Home Medications 02/23/23 02/23/23 Unknown History Allergies Allergy/AdvReac Type Severity Reaction Status Date / Time No Known Allergies Allergy Verified 01/02/22 09:09 PFSH NPU PFSH: Social History Smoking and tobacco status: never smoked Alcohol intake: current Alcohol intake frequency: few times a week Substance/Drug Use: never Mental Status Exam MSE Comments: This is a well nourished, well developed white female in hospital scrubs with adequate grooming and eye contact. Poor dentition with significant misalignment of teeth. No abnormal movements. Cooperative with exam in no acute distress. Spe ech was normal rate and volume. Mood described as wanting to go home and not happy about being here, affect congruent. Thought process, organized. Thought content: patient denies suicidal or homicidal ideation, denies paranoia with no delusions noted and denies auditory and visual hallucinations. Attention and concentration are intact. Memory appeared somewhat unreliable but none were formally tested. She is alert and oriented three times. Insight and judgment are limited. Impulse control is limited. Vitals/I&O/Wt Last Vital Signs Temp 98.1 F 02/22/23 23:24 Pulse 89 02/22/23 23:24 Resp 17 02/23/23 06:00 BP 114/49 02/22/23 23:24 Pulse Ox 97 02/22/23 23:24 O2 Del Method Room Air 02/22/23 23:24 Weight last 48 hrs Weight 58.967 kg Data NPU 02/22/23 17:55 02/22/23 17:55 A&P Assessment and plan (1) Verbalizes suicidal thoughts: (2) Alcohol use disorder, moderate, dependence: (3) Partner relational problem: (4) Intermittent explosive personality: Plan This is a white female with a history of partner relational problems which have involved her children presenting after a disagreement about with her fiance while both were drinking and reporting potential anger problems but that she has not had issues with it or her mental health in the past. We discussed the risks, benefits and alternatives of the 96 hour hold and they understood and agreed to proceed as is documented in this note. 1. Continue current medications 2. Encourage individual, group and milieu therapy 3. Continue q-15 minute check for safety 4. Recommend sober living treatment at the highest level of care to which the patient is willing to commit. Involuntary Hold Information 96 Hour Hold: 96 Hour Involuntary Admission: Yes 96 Hour Hold Ending Date: 03/01/23 96 Hour Hold Ending Time: 17:40 Attestations NPU Medical Necessity Statement*: Inpatient hospitalization is medically necessary and the clinically appropriate intervention at this time. We will monitor medications and make changes as indicated. Patient will be in the hospital for over two midnights. Likely length of stay is three to five days. Coding Level of Care Code Acute Code for Chg Fwd Diagnoses Verbalizes suicidal thoughts R45.851 Alcohol use disorder, moderate, dependence F10.20 Partner relational problem Z63.0 Intermittent explosive personality F63.81
[2023-02-23 14:00] VITALS: BP 123/83; PULSE 79; RESP 18; TEMP 36.7; O2SAT 99
--- NOTE | 2023-02-23 15:52 | NPU.GN ---
[facility] Group Topic:wood crafting General Mood of Group- patient participated in group by making and painting her flamingo. Enjoyed the project
[2023-02-23] MEDS: trazodone 50 mg Tablet PO (21:17)
[2023-02-23 22:00] VITALS: BP 124/73; PULSE 76; RESP 18; TEMP 36.7; O2SAT 97
[2023-02-24] MEDS: nicotine 2 mg Gum BUCCAL ×5 (07:35→19:29)
--- NOTE | 2023-02-24 09:33 | W.PM.NPUPNS ---
Subjective NPU Subjective: Patient presented today reporting that she is doing much better and appearing much improved. We had an extensive conversation about concerns and raised in a 96-hour hold including that she was not being forthright about one of her daughters being in another residential setting secondary to concerns regarding the drinking and conflict between her . The 96-hour hold affidavits were by her mother and her sister but she felt that her mother would not report which she already reported on the affidavit. At the end of our conversation she threw in the she would sign up for outpatient rehab/sober living treatment on outpatient basis after saying that she only drank on weekends and was not much except for occasionally. We discussed the need for us to have the social work team involved in aftercare planning to make sure that her needs are addressed and to avoid the risk of her children being placed even temporarily. We agreed to reach out to her mother and for corroborating information. Mental Status Exam MSE Comments: This is a well nourished, well developed white female in hospital scrubs with adequate grooming and eye contact. Poor dentition with significant misalignment of teeth. No abnormal movements. Cooperative with exam in no acute distress. Speech was normal rate and volume. Mood described as okay wanting to go home, affect congruent. Thought process, organized. Thought content: patient denies suicidal or homicidal ideation, denies paranoia with no delusions noted and denies auditory and visual hallucinations. Attention and concentration are intact. Memory appeared somewhat unreliable but none were formally tested. She is alert and oriented three times. Insight and judgment are limited. Impulse control is limited. Vitals/I&O/Wt Last Vital Signs Temp 98.4 F 02/24/23 20:20 Pulse 97 02/24/23 20:20 Resp 16 02/24/23 20:20 BP 124/85 02/24/23 20:20 Pulse Ox 95 02/24/23 20:20 O2 Del Method Room Air 02/24/23 20:20 Weight last 48 hrs Weight 60.146 kg Data NPU 02/22/23 17:55 02/22/23 17:55 A&P Assessment and plan (1) Verbalizes suicidal thoughts: (2) Alcohol use disorder, moderate, dependence: (3) Partner relational problem: (4) Intermittent explosive personality: Plan This is a white female with a history of partner relational problems which have involved her children presenting after a disagreement about with her fiance while both were drinking and reporting potential anger problems but that she has not had issues with it or her mental health in the past. We discussed the risks, benefits and alternatives of the 96 hour hold and they understood and agreed to proceed as is documented in this note. 1. Continue current medications 2. Encourage individual, group and milieu therapy 3. Continue q-15 minute check for safety 4. Recommend sober living treatment at the highest level of care to which the patient is willing to commit. Involuntary Hold Information 96 Hour Hold: 96 Hour Involuntary Admission: Yes 96 Hour Hold Ending Date: 03/01/23 96 Hour Hold Ending Time: 17:40 Attestations NPU Medical Necessity Statement*: Inpatient hospitalization is medically necessary and the clinically appropriate intervention at this time. We will monitor medications and make changes as indicated. Likely length of stay is 1-3 days. Coding Level of Care Code Acute Code for Chg Fwd Diagnoses Verbalizes suicidal thoughts R45.851 Alcohol use disorder, moderate, dependence F10.20 Partner relational problem Z63.0 Intermittent explosive personality F63.81
[2023-02-24 14:00] VITALS: BP 130/68; PULSE 78; RESP 18; TEMP 36.8; O2SAT 98
[2023-02-24 20:20] VITALS: BP 124/85; PULSE 97; RESP 16; TEMP 36.9; O2SAT 95
[2023-02-24] MEDS: trazodone 50 mg Tablet PO (21:11)
[2023-02-25] MEDS: nicotine 2 mg Gum BUCCAL ×5 (06:41→20:37)
[2023-02-25 14:00] VITALS: BP 124/67; PULSE 86; RESP 18; TEMP 37.1; O2SAT 96
--- NOTE | 2023-02-25 15:15 | W.PM.NPUPNS ---
Subjective NPU Subjective: Patient presented today reporting she is doing better. She seemed to be more open to a conversation about the real essence of her hospitalization including her drinking behavior, conflict with her /significant other and issue surrounding the safety of her children in this at times volatile situation. She is finally agreeable to working with [facility] and considering outpatient services at [facility] and we agreed that we would work to get these options in place and consider discharge in the next 48 hours. Mental Status Exam MSE Comments: This is a well nourished, well developed white female in hospital scrubs with adequate grooming and eye contact. Poor dentition with significant misalignment of teeth. No abnormal movements. Cooperative with exam in no acute distress. Speech was normal rate and volume. Mood described as a little better, affect congruent, and slightly subdued. Thought process, organized. Thought content: patient denies suicidal or homicidal ideation, denies paranoia with no delusions noted and denies auditory and visual hallucinations. Attention and concentration are intact. Memory appeared more reliable reliable but none were formally tested. She is alert and oriented three times. Insight and judgment are limited. Impulse control is limited. Vitals/I&O/Wt Last Vital Signs Temp 98.7 F 02/25/23 14:00 Pulse 86 02/25/23 14:00 Resp 18 02/25/23 14:00 BP 124/67 02/25/23 14:00 Pulse Ox 96 02/25/23 14:00 O2 Del Method Room Air 02/25/23 14:00 Data NPU 02/22/23 17:55 02/22/23 17:55 A&P Assessment and plan (1) Verbalizes suicidal thoughts: (2) Alcohol use disorder, moderate, dependence: (3) Partner relational problem: (4) Intermittent explosive personality: Plan This is a white female with a history of partner relational problems which have involved her children presenting after a disagreement about with her fiance while both were drinking and reporting potential anger problems but that she has not had issues with it or her mental health in the past. We discussed the risks, benefits and alternatives of the 96 hour hold and they understood and agreed to proceed as is documented in this note. 1. Continue current medications 2. Encourage individual, group and milieu therapy 3. Continue q-15 minute check for safety 4. Recommend sober living treatment at the highest level of care to which the patient is willing to commit. Involuntary Hold Information 96 Hour Hold: 96 Hour Involuntary Admission: Yes 96 Hour Hold Ending Date: 03/01/23 96 Hour Hold Ending Time: 17:40 Attestations NPU Medical Necessity Statement*: Inpatient hospitalization is medically necessary and the clinically appropriate intervention at this time. We will monitor medications and make changes as indicated. Likely length of stay is 1-2 days. Coding Level of Care Code Acute Code for Chg Fwd Diagnoses Verbalizes suicidal thoughts R45.851 Alcohol use disorder, moderate, dependence F10.20 Partner relational problem Z63.0 Intermittent explosive personality F63.81
[2023-02-25] MEDS: trazodone 50 mg Tablet PO ×2 (20:35→21:53)
[2023-02-25 21:14] VITALS: BP 139/89; PULSE 123; RESP 18; TEMP 37.1; O2SAT 97
--- NOTE | 2023-02-26 00:38 | PC.NURSE ---
0000- assumed care of patient, resting with eyes clsoed
[2023-02-26 06:38] VITALS: BP 120/86; PULSE 121; RESP 18; TEMP 36.6; O2SAT 95
[2023-02-26] MEDS: nicotine 2 mg Gum BUCCAL ×3 (06:43→14:49)
[2023-02-26 14:00] VITALS: BP 127/80; PULSE 87; RESP 18; TEMP 36.9; O2SAT 99
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
[2023-02-26 17:14] VITALS: BP 127/80; PULSE 87; RESP 18; TEMP 36.9; O2SAT 99
== END 2023-02-26 17:43 | disposition home or self-care (01) | DRG 897 ==
LOC: ER 20:12 → NP 20:43
PROVIDERS: Admitting Provider Psychiatry & Neurology Psychiatry; Emergency Provider Emergency Medicine; PCP Family Medicine; Visit Provider Psychiatry & Neurology Psychiatry
DX: F10.20 Alcohol dependence, uncomplicated (principal); R45.851 Suicidal ideations; F17.210 Nicotine dependence, cigarettes, uncomplicated; F63.81 Intermittent explosive disorder; Z63.0 Problems in relationship with spouse or partner
CPT/HCPCS: 36415; 80053; 80306; 80307; 84443; 84703; 85025; 97150; 97165; 99238; 99285; Q0162

== ENCOUNTER → 2024-03-11 11:24 | Outpatient (BNVA) | payer OTHER, SELFPAY | PROVIDERS: PCP Family Medicine; Visit Provider Nurse Practitioner Psychiatric/Mental Health | DX: F10.20 Alcohol dependence, uncomplicated (principal); Z79.899 Other long term (current) drug therapy | CPT/HCPCS: 80053; 80307 ==

== ENCOUNTER 2025-01-29 19:15 | Emergency (ER) | payer MEDICAID, SELFPAY ==
[2025-01-29 19:18] VITALS: BP 118/66; PULSE 121; RESP 18; TEMP 36.7; O2SAT 96; BMI 24.5
--- NOTE | 2025-01-29 19:30 | CTR_ITS ---
PROCEDURE INFORMATION: Exam: CT Abdomen And Pelvis With Contrast Exam date and time: 01/29/2025 8:17 PM Age: 24 years old Clinical indication: Abdominal pain; C/O epigastric pain; Additional info: Upper abd pain, ETOH abuse TECHNIQUE: Imaging protocol: Computed tomography of the abdomen and pelvis with contrast. Radiation optimization: All CT scans at this facility use at least one of these dose optimization techniques: automated exposure control; mA and/or kV adjustment per patient size (includes targeted exams where dose is matched to clinical indication); or iterative reconstruction. Contrast material: OMNI 350; Contrast volume: 100 ml; Contrast route: INTRAVENOUS (IV); COMPARISON: CT hip LT wo con* [id number] 03/31/2022 7:34 PM RADIATION DOSE METRICS: Total DLP (mGy-cm): 401.75 FINDINGS: Lungs: Clear basilar lung parenchyma. Pleural spaces: No pleural fluid. Heart: Normal heart size. Liver: Normal configuration. Homogeneous parenchyma. Gallbladder and biliary ducts: Postprandial gallbladder is contracted. Pancreas: No visible pancreatic edema, ductal dilation, or mass. Spleen: Normal. No splenomegaly. Adrenal glands: Normal configuration. Kidneys and ureters: Kidneys enhance symmetrically and demonstrate no evidence of mass, calculus, obstruction, or inflammation. Stomach and bowel: Postprandial stomach without visible ulcer or mass. Normal enhancement of the stomach, small bowel, and colon. No bowel wall thickening or gas. No dilated bowel. Appendix: Normal appendix is confirmed. Intraperitoneal space: Trace pelvic free fluid. Vasculature: Infrarenal inferior vena cava is on the left. Arterial structures are widely patent. Portal vein is patent. Lymph nodes: No enlarged lymph nodes. Urinary bladder: Unremarkable as visualized. Reproductive: Recently ruptured left ovarian follicle noted. Bones/joints: No fracture or destructive lesion. Soft tissues: Unremarkable. CT/CT abdomen pelvis w con* [id number] IMPRESSION: 1. No acute abnormality identified to explain patient's upper abdomen pain. In particular, the pancreas appears normal and there is no visible gastric ulcer or significant mucosal enhancement. 2. Recently ruptured left ovarian follicle noted with trace pelvic fluid.
[2025-01-29 19:47] LABS: Basophils % 0.2 %; Eosinophils % 0.3 %; Hematocrit 43.8 % (36-47); Lymphocytes # 1.4 10^3/uL (0.8-4.8); Lymphocytes % 11.3 %; Mean Corpuscular HGB Conc 33.3 g/dL (30-55); Mean Corpuscular Hemoglobin 29.7 pg (27-33); Mean Corpuscular Volume 89.2 fl (85-98); Mean Platelet Volume 10.3 fL (7.4-10.4); Monocytes % 7.7 %; Neutrophils # 10.15 10^3/uL (1.8-7.7); Neutrophils % 80.3 %; Nucleated Red Blood Cells % 0 %; Platelet Count 222 10^3/cmm (157-399); Red Blood Count 4.91 10^6/uL (3.85-5.65); Red Cell Distribution Width 12.1 % (12.1-15.1); White Blood Count 12.65 10^3/uL (3.29-11.43)
[2025-01-29 19:51] LABS: Bilirubin Urine Negative (Negative); Blood Urine 1+ (Negative); Glucose Urine UA Negative (Normal); Ketones Urine Negative (Negative); Leukocyte Esterase Urine 1+ (Negative); Nitrate Urine Positive (Negative); Protein Urine Negative (Negative); Urine Appearance Cloudy (CLEAR); Urine Color Yellow (Yellow); Urobilinogen Urine 0.2 mg/dL (Negative); pH Urine 5.5 (5-7)
[2025-01-29 19:56] LABS: Add Urine Microscopic? YES; Bacteria Urine 4+ /hpf; Hyaline Casts Urine 0.81 /lpf
[2025-01-29 19:59] VITALS: RESP 16; O2SAT 98
[2025-01-29] MEDS: morphine 4 mg/mL SDV 1 mL IVP (19:59)
[2025-01-29] MEDS: sodium chloride 0.9% 1,000 ML 999 ML IV (19:59)
[2025-01-29 20:02] LABS: HCG, Serum Qual Negative (Negative)
[2025-01-29 20:02] LABS: Add Urine Culture? Yes
[2025-01-29 20:16] LABS: Alanine Aminotransferase 16 U/L (0-33); Albumin Level 4.7 g/dL (3.5-5.2); Alkaline Phosphatase 69 U/L (35-105); Anion Gap 17.8 (5-19); Aspartate Amino Transferase 15 U/L (0-32); Blood Urea Nitrogen 12 mg/dL (6-20); Carbon Dioxide 23 mmol/L (22-29); Chloride 99 mmol/L (98-107); Creatinine Clr Calc Pharmacy 99.7281; Glomerular Filtration Rate 87.4 mL/min (90-130); Glucose 105 mg/dL (65-115); Lipase 21 U/L (13-60); Osmolality Calculated 282 mOsm/kg (285-295); Potassium 3.8 mmol/L (3.5-5.1); Sodium 136 mmol/L (136-145); Total Bilirubin 0.7 mg/dL (0.15-1.2); Total Protein 7.7 g/dL (6.6-8.7)
[2025-01-29 20:19] LABS: Alcohol Level < 10 mg/dL (0-10); Lactic Sepsis W/Reflex 0.8 mmol/L (0.5-2.2)
[2025-01-29] MEDS: iohexol 350 mg/mL 500 mL Btl (per mL) IV (20:21)
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
[2025-01-29 21:00] VITALS: BP 114/63; RESP 16; O2SAT 100
[2025-01-29] MEDS: cefTRIAXone 1,000 mg SDV 1000 MG IVP (21:41)
[2025-01-29] MEDS: ketorolac 30 mg/mL INJ IVP (21:41)
[2025-01-29 21:54] VITALS: BP 132/83; PULSE 104; RESP 16; O2SAT 97
== END 2025-01-29 21:54 | disposition home or self-care (01) ==
PROVIDERS: Emergency Provider Physician Assistant; PCP Family Medicine
DX: N30.00 Acute cystitis without hematuria (principal)
CPT/HCPCS: 36415; 74177; 80053; 80307; 81001; 83605; 83690; 84703; 85025; 87077; 87086; 87186; 96374; 96375; 99285; J0696; J1885; J2270; J7030

== ENCOUNTER → 2025-06-28 14:07 | Outpatient (BNVA) | payer MEDICAID, SELFPAY | PROVIDERS: PCP Family Medicine; Visit Provider Nurse Practitioner | DX: L08.9 Local infection of the skin and subcutaneous tissue, unspecified (principal) | CPT/HCPCS: 87070; 87075; 87077; 87184; 87205 ==